=== PATIENT | female | born 1990 | race Caucasian/White ===

== ENCOUNTER 2016-03-25 14:10 | Emergency (ER) | payer OTHER ==
[2016-03-25 14:16] VITALS: BP 133/88; PULSE 90; TEMP 98.6; BMI 28.1
[2016-03-25] MEDS ORDERED: AMOX TR/POT CLAV 875MG/125MG TABLETS (FP) PO ONE (14:30)
--- NOTE | 2016-03-25 14:34 | PDOC ---
History of Present Illness - General Chief Complaint: Bite Stated Complaint: LFA CAT BITE Time Seen by Provider: 03/25/16 14:12 - History of Present Illness Initial Comments: 03/25/16 14:42 Chief complaint: Cat bite History of present illness: Patient works as a veterinary receptionist, was bitten by a pet cat in the course of her work today. No pain at the site. No distal numbness tingling pain or weakness of the wrist or hand Review of systems: As above. No other injuries Past medical history: Asthma, mood disorder, on multiple medications as noted Social/family history reviewed and noncontributory Physical exam: Alert oriented 3 well-developed well-nourished no acute distress cooperative Afebrile, vital signs normal Left forearm: There are numerous 1 mm punctures of the volar aspect of the midforearm. These all appear to be superficial, involving the skin only. There is no point tenderness and no palpable foreign bodies in or around the wounds. There is no drainage and no exposed subcutaneous tissue. Distal pulses are full. No distal sensory or motor deficits to the wrist hand or digits. Capillary refill intact to all 5 digits Impression: Superficial puncture wounds due to a cat bite sustained in her work. Plan: Wounds were scrubbed with saline, dressed with bacitracin, 4 x 4, and Julian. Rest and elevation was recommended. Return to normal activity tomorrow if there is no sign of infection. If there is sign of infection, including increased pain, redness, warmth, swelling, or drainage, return to ER or see primary physician immediately. Check your tetanus immunization status and arrange to have a booster within 72 hours if not up to date (5 years) Past History - Past Medical History Allergies/Adverse Reactions: Allergies Allergy/AdvReac Type Severity Reaction Status Date / Time No Known Allergies Allergy Verified 01/02/16 14:53 Home Medications: Ambulatory Orders Albuterol Sulfate Inhaler - [Ventolin HFA Inhaler -] 1 - 2 inh PO QID PRN Bupropion HCl [Wellbutrin Xl -] 450 mg PO DAILY 01/02/16 Cetirizine HCl [Zyrtec -] 10 mg PO DAILY 01/02/16 Escitalopram Oxalate [Lexapro -] 20 mg PO HS 01/02/16 Mometasone/Formoterol [Dulera 100 Mcg/5 Mcg Inhaler] 2 inh IH BID 01/02/16 Norgestrel-Ethinyl Estradiol [[id number] Tablet] 1 each PO DAILY 01/02/16 Amoxicillin/Potassium Clav [Augmentin 875-125 Tablet] 1 tab PO BID #10 tablet Asthma: Yes Psychiatric Problems: Yes (DEPRESSION) - Psycho/Social/Smoking Cessation Hx Anxiety: No Suicidal Ideation: No Smoking History: Never smoked Hx Alcohol Use: No Drug/Substance Use Hx: No Substance Use Type: None *Physical Exam - Vital Signs Last Vital Signs Temp Pulse Resp BP Pulse Ox 98.6 F 90 18 133/88 100 03/25/16 14:10 03/25/16 14:10 03/25/16 14:10 03/25/16 14:10 03/25/16 14:10 *DC/Admit/Observation/Transfer Diagnosis at time of Disposition: Cat bite of left forearm Qualifiers: Encounter type: initial encounter Qualified Code(s): S51.852A - Open bite of left forearm, initial encounter - Discharge Dispostion Disposition: HOME Condition at time of disposition: Improved Admit: No - Prescriptions Prescriptions: Amoxicillin/Potassium Clav [Augmentin 875-125 Tablet] 1 tab PO BID #10 tablet - Referrals Referrals: Chanda Basilio MD [Primary Care Provider] - 2 Days - Patient Instructions Printed Discharge Instructions: How to Care for a Domestic Animal Bite Additional Instructions: Rest and elevate for 12-24 hours. Resume normal activity if there is no further sign of infection. Otherwise return to the ER or see her primary physician for recheck. Recheck with mother regarding most recent tetanus shot. If not within 5 years, see your primary physician for a booster or return to the emergency room. This must be done within 72 hours if necessary - Post Discharge Activity Work/School Note: Back to Work
[2016-03-25] MEDS ORDERED: AMOX TR/POT CLAV 875MG/125MG TABLETS (FP) ONE (14:36)
[2016-03-25] MEDS ORDERED: DIPHTH,PERTUSS(ACELL),TET 0.5 ML DISP.SYRIN IM ONE (14:57)
== END 2016-03-25 14:59 | disposition home or self-care (01) ==
LOC: FER 14:10
PROC: 3E0234Z Introduction of Serum, Toxoid and Vaccine into Muscle, Percutaneous Approach (ICD-10-PCS; principal; 2016-03-25)
DX: S51.852A Open bite of left forearm, initial encounter (principal); W55.01XA Bitten by cat, initial encounter; Y93.89 Activity, other specified; Y92.89 Other specified places as the place of occurrence of the external cause; Y99.0 Civilian activity done for income or pay
CPT/HCPCS: 90471; 90715; 99284-25

== ENCOUNTER 2023-04-15 04:29 | Day surgery (SDC) | payer OTHER ==
[2023-04-15 08:14] VITALS: BMI 32.8
[2023-04-15 09:32] VITALS: TEMP 100
[2023-04-15 09:42] VITALS: RESP 20
[2023-04-15 10:01] VITALS: BP 128/86; PULSE 83
== END 2023-04-15 10:22 | disposition home or self-care (01) ==
LOC: JASU-ENDO 04:29
PROVIDERS: ATTEND Internal Medicine Gastroenterology
PROC: 0DB78ZX Excision of Stomach, Pylorus, Via Natural or Artificial Opening Endoscopic, Diagnostic (ICD-10-PCS; 2023-04-15)
PROC: 0DB68ZX Excision of Stomach, Via Natural or Artificial Opening Endoscopic, Diagnostic (ICD-10-PCS; 2023-04-15)
PROC: 0DB28ZX Excision of Middle Esophagus, Via Natural or Artificial Opening Endoscopic, Diagnostic (ICD-10-PCS; 2023-04-15)
PROC: 0DB38ZX Excision of Lower Esophagus, Via Natural or Artificial Opening Endoscopic, Diagnostic (ICD-10-PCS; 2023-04-15)
PROC: 0DB98ZX Excision of Duodenum, Via Natural or Artificial Opening Endoscopic, Diagnostic (ICD-10-PCS; principal; 2023-04-15 09:00)
DX: K21.00 Gastro-esophageal reflux disease with esophagitis, without bleeding (principal); K44.9 Diaphragmatic hernia without obstruction or gangrene; K29.50 Unspecified chronic gastritis without bleeding
CPT/HCPCS: 81025; 88341-TC; 88342